=== PATIENT | female | born 1985 | race Hispanic/Latino ===

== ENCOUNTER 2018-08-24 17:18 | Emergency (ER) | payer SELFPAY ==
[~2018-08-24] VITALS: Ht 160 cm; Wt 60.0 kg
[~2018-08-24 17:18] MED LIST: AZITHROMYCIN250 MG PO; BACTRIM DS1 TAB PO; IBUPROFEN600 MG PO; LORTAB 7.5-3251 TAB PO; LORTAB 7.57.5 MG PO; PRE-NATAL PO; PROMETHAZINE25 MG PO
[2018-08-24] MEDS ORDERED: LEVAQUIN750 M1 PO (17:59)
[2018-08-24 18:08] VITALS: BP 115/71
== END 2018-08-24 18:13 | disposition home or self-care (01) | DRG 153 ==
LOC: ED 17:18
DX: J32.9 Chronic sinusitis, unspecified (principal); R51 Headache; R09.81 Nasal congestion; R05 Cough